=== PATIENT | female | born 1995 | race American Indian/Alaskan Native ===

== ENCOUNTER 2021-09-06 19:17 | Emergency (ER) | payer SELFPAY ==
--- NOTE | 2021-09-06 20:09 | Emergency Department Report ---
Blank Doc - Documentation Documentation: Patient c/o bloody d/c when wiping. She is 8w gestation now and . No pre lona care yet. First appt next week. C/o abd cramping. On exam, wd/wn in nad. abd soft, nt/nd labs/us ordered. mse process complete. another provider will complete the exam and follow results.
[2021-09-06 20:11] VITALS: BP 132/72
[2021-09-06 20:41] LABS: Hematocrit 39.2 % (30.3-42.9); Hemoglobin 12.9 gm/dl (10.1-14.3); Mean Corpuscular HGB Conc 33 % (30-34); Mean Corpuscular Volume 84 fl (79-97); Platelet Count 221 K/mm3 (140-440); Red Blood Count 4.67 M/mm3 (3.65-5.03); Red Cell Distribution Width 15.5 % (13.2-15.2)
--- NOTE | 2021-09-06 21:38 | Emergency Department Report ---
HPI - General Chief Complaint: Vaginal Bleeding Time Seen by Provider: 09/06/21 21:07 - HPI HPI: 25-year-old female, at approximately 8 weeks gestation based on LMP presents complaining of 1 day of vaginal spotting. She has not confirmed the yet but has an appointment with an OBGYN for the of this month. She has no past medical history. Other than spotting, which she noted when she wiped with toilet paper, she has had no other symptoms. She there are no known aggravating or alleviating factors. Denies any associated headaches, vision change, fever, chest pain, shortness of breath, abdominal pain, nausea/vomiting, dysuria, abnormal discharge, or any other complaints. ED Past Medical Hx - Past Medical History Previous Medical History?: No - Surgical History Past Surgical History?: No - Medications Home Medications: Home Medications Medication Instructions Recorded Confirmed Last Taken Type cephALEXin [Keflex] 500 mg PO BID #14 cap 09/06/21 Unknown Rx ED Review of Systems ROS: Stated complaint: PREG 8WKS; PINK DISCHARGE Other details as noted in HPI Comment: All other systems reviewed and negative Constitutional: denies: chills, fever Eyes: denies: eye pain, vision change ENT: denies: throat pain, congestion Respiratory: denies: cough, shortness of breath Cardiovascular: denies: chest pain, palpitations Gastrointestinal: denies: abdominal pain, nausea, vomiting Genitourinary: other (vaginal spotting). denies: dysuria, frequency, discharge Musculoskeletal: denies: back pain, arthralgia Skin: denies: rash, lesions Neurological: denies: headache, weakness Hematological/Lymphatic: denies: easy bleeding Physical Exam - Physical Exam Vital Signs: Vital Signs 09/06/21 20:00 Temperature 98.8 F Pulse Rate 84 Respiratory 18 Rate Blood Pressure 132/72 [Right] O2 Sat by Pulse 100 Oximetry Physical Exam: GENERAL: Well developed and well nourished. No acute distress HEAD: Normocephalic. No obvious signs of trauma. ENT: Moist mucous membranes. EYES: Extraocular movements are intact. Pupils are equal round and reactive to light bilaterally NECK: Supple. Full ROM is intact. Trachea is midline. LUNGS: Nonlabored breathing. Equal chest rise bilaterally. Clear to auscultation bilaterally. CARDIOVASCULAR: Regular rate and rhythm. No murmurs or rubs. VASCULAR: Cap refill < 2 seconds ABDOMEN: Abdomen is soft and nondistended. There is no significant tenderness, guarding or rebound. SKIN: Skin is warm and dry NEURO: Patient is awake, alert, and oriented. supplemental nurse II-XII grossly intact. No foc al deficits. Normal motor and sensory exam throughout. Normal speech. MUSCULOSKELETAL: No obvious deformities. No significant tenderness. Normal ROM throughout. BACK/SPINE: No costovertebral angle tenderness. ED Course Vital Signs 09/06/21 20:00 Temperature 98.8 F Pulse Rate 84 Respiratory 18 Rate Blood Pressure 132/72 [Right] O2 Sat by Pulse 100 Oximetry ED Medical Decision Making - Lab Data Result diagrams: 09/06/21 20:15 - Medical Decision Making 25-year-old female, at approximately 8 weeks gestation based on LMP presen ts complaining of 1 day of vaginal spotting. She has no other symptoms. She is afebrile with normal vital signs. She has a normal physical exam. Labs were drawn in triage and reveal no significant leukocytosis or anemia. She is Rh+. Quantitative beta hCG level is 102,410. Transvaginal ultrasound is pending. Transvaginal ultrasound shows 8-week 5-day IUP with heart rate of 185 and no other abnormalities or bleeding. On repeat assessment, the patient is sitting comfortably in a chair. She reports no new symptoms. We discussed the results of her ultrasound and the diagnosis of threatened miscarriage and importance of close follow-up with an [facility]. We will follow-up urinalysis to assess for evidence of bacteriuria or UTI and discharge with antibiotic if appropriate. The patient expressed understanding and agreement with this plan of care. Urinalysis reveals findings consistent with urinary tract infection. Will prescribe Keflex 500 mg twice daily x7 days. Critical care attestation.: If time is entered above; I have spent that time in minutes in the direct care of this critically ill patient, excluding procedure time. ED Disposition Clinical Impression: Threatened , Urinary tract infection affecting Disposition: 01 HOME / SELF CARE / HOMELESS Is pt being admited?: No Condition: Stable Instructions: Threatened Miscarriage, Vaginal Bleeding During , First Trimester, and Urinary Tract Infection Additional Instructions: Please follow-up with an [facility] within the next 5 to 10 days. Return to the emergency department for any significantly worsening symptoms or new health concerns. Prescriptions: cephALEXin [Keflex] 500 mg PO BID #14 cap Referrals: [facility] [Provider Group] - 3-5 Days
--- NOTE | 2021-09-06 21:49 | Ultrasound Report ---
ULTRASOUND OBSTETRIC REASON FOR EXAM: bleeding TECHNIQUE: Transabdominal and transvaginal ultrasound was performed to evaluate a first trimester pre gnancy. COMPARISON: None available. FINDINGS: FINDINGS: The pole, yolk sac, and gestational sac are normal in appearance. [place]-rump length: 21 mm. This corresponds with a gestational age of 8 weeks 5 days. heart rate: 185 bpm Perigestational hemorrhage: No evidence of perigestational hemorrhage on the provided images. MATERNAL FINDINGS: Uterus measures 8.3 x 5.7 x 6.8 cm. There is a fibroid in the uterus. The right ovary demonstrates a normal sonographic appearance. The left ovary demonstrates a normal sonographic appearance. Cul-de-sac: There is no free fluid. IMPRESSION: Viable intrauterine . No significant abnormality. Gestational age is 8 weeks 5 days by ultra sound. Recommend clinical screening and ultrasound follow-up in the second trimester to screen for an omalies. Signer Name: Oscar Lamb MD Signed: 09/06/2021 9:45 PM Workstation Name: [id number]
[2021-09-06 22:35] LABS: Bacteria,Urine 2+ /HPF (Negative); Bilirubin,Urine NEG (Negative); Blood,Urine LG (Negative); Color,Urine Yellow (Yellow); Mucus,Urine 3+ /HPF; Protein,Urine <15 mg/dL mg/dL (Negative); Urobilinogen,Urine < 2.0 mg/dL (<2.0)
== END 2021-09-06 23:27 | disposition home or self-care (01) ==
LOC: ED 19:17
DX: O20.0 Threatened abortion (principal); O23.40 Unspecified infection of urinary tract in pregnancy, unspecified trimester; N39.0 Urinary tract infection, site not specified; Z3A.01 Less than 8 weeks gestation of pregnancy
CPT/HCPCS: 36415; 76801; 76817; 81001; 84702; 85027; 86900; 86901; 87076; 87086; 87186; 99284